=== PATIENT | female | born 1985 | race Hispanic/Latino ===

== ENCOUNTER 2017-12-19 16:51 | Emergency (ER) | payer MEDICAID ==
[2017-12-19] MEDS ORDERED: ACETAMINOPHEN EXTRA STRENGTH 500 MG TABLET ONE (17:11)
[2017-12-19] MEDS ORDERED: TETANUS/DIPHTHERIA TOXOID [ADULT] 0.5 ML VIAL IM ONE (17:12)
== END 2017-12-19 17:29 | disposition home or self-care (01) ==
LOC: EDH 16:51
DX: S80.212A Abrasion, left knee, initial encounter (principal); S80.211A Abrasion, right knee, initial encounter; Z86.19 Personal history of other infectious and parasitic diseases; W22.8XXA Striking against or struck by other objects, initial encounter; Y93.89 Activity, other specified; Y92.098 Other place in other non-institutional residence as the place of occurrence of the external cause; Y99.8 Other external cause status
CPT/HCPCS: 90471; 90714

== ENCOUNTER 2020-03-02 18:48 | Emergency (ER) | payer MEDICAID ==
[2020-03-02] MEDS ORDERED: KETOROLAC TROMETHAMINE 60 MG/2 ML VIAL ONE (19:06)
[2020-03-02] MEDS ORDERED: CYCLOBENZAPRINE HCL 10 MG TABLET ONE (19:07)
== END 2020-03-02 19:48 | disposition home or self-care (01) ==
LOC: EDH 18:48
DX: S39.012A Strain of muscle, fascia and tendon of lower back, initial encounter (principal); Z72.0 Tobacco use; V59.49XA Driver of pick-up truck or van injured in collision with other motor vehicles in traffic accident, initial encounter; Y93.89 Activity, other specified; Y92.488 Other paved roadways as the place of occurrence of the external cause; Y99.8 Other external cause status
CPT/HCPCS: 72100; 96372; 99283; J1885

== ENCOUNTER 2020-04-18 11:29 | Emergency (ER) | payer MEDICAID ==
[2020-04-18] MEDS ORDERED: ACETAMINOPHEN-CODEINE 300/30MG TAB ONE (12:37)
[2020-04-18] MEDS ORDERED: KETOROLAC TROMETHAMINE 30MG/ML ONE (12:37)
[2020-04-18] MEDS ORDERED: ACETAMINOPHEN EXTRA STRENGTH 500 MG TABLET ONE (12:51)
== END 2020-04-18 13:01 | disposition home or self-care (01) ==
LOC: EDH 11:29
DX: S90.31XA Contusion of right foot, initial encounter (principal); Z72.0 Tobacco use; X58.XXXA Exposure to other specified factors, initial encounter; Y93.89 Activity, other specified; Y92.89 Other specified places as the place of occurrence of the external cause; Y99.8 Other external cause status
CPT/HCPCS: 73630; 99283; J1885